=== PATIENT | male | born 1990 | race Caucasian/White ===

== ENCOUNTER → 2018-06-27 | Outpatient (CLI) | payer BC | END | disposition home or self-care (01) | LOC: RAD 10:05 | PROVIDERS: ATTEND Internal Medicine | DX: M17.0 Bilateral primary osteoarthritis of knee (principal) | CPT/HCPCS: 73560 ==

== ENCOUNTER → 2018-06-28 | Outpatient (CLI) | payer BC ==
[2018-06-28 09:50] LABS: BASOPHILS % 0.3 % (0.0-2.0); EOSINOPHILS % 1.4 % (0.0-5.0); HEMATOCRIT. 45.5 % (42.0-52.0); HEMOGLOBIN. 15.7 g/dL (14.0-18.0); LYMPHOCYTES % 38.8 % (20.0-50.0); MEAN CORPUSCULAR HEMOGLOBIN 29.4 pg (28.0-32.0); MEAN CORPUSCULAR VOLUME 85.1 fL (80.0-94.0); MEAN PLATELET VOLUME 10.5 fl (7.4-10.4); MONOCYTES % 7.2 % (2.0-8.0); NEUTROPHILS % 52.3 % (40.0-76.0); PLATELET 151 x1000/uL (130-400); RED BLOOD CELL COUNT 5.34 mill/uL (4.7-6.1); RED CELL DISTRIBUTION WIDTH 13.4 % (11.6-14.6)
[2018-06-28 10:04] LABS: CHLORIDE 106 mEq/L (98-107)
[2018-06-28 10:13] LABS: HDL CHOLESTEROL 38 mg/dL (40-59); LDL CHOLESTEROL 142 mg/dL (5-100); T4 FREE 1.07 ng/dL (0.76-1.46)
== END | disposition home or self-care (01) ==
LOC: LAB 09:19
PROVIDERS: ATTEND Internal Medicine
DX: M17.10 Unilateral primary osteoarthritis, unspecified knee (principal)
CPT/HCPCS: 36415; 80048; 80061; 82248; 84439; 84443

== ENCOUNTER → 2020-08-13 | Outpatient (CLI) | payer OTHER ==
[2020-08-13 09:55] LABS: BASOPHILS % 0.6 % (0.0-2.0); EOSINOPHILS % 1.5 % (0.0-5.0); HEMATOCRIT. 44.2 % (42.0-52.0); HEMOGLOBIN. 15.1 g/dL (14.0-18.0); LYMPHOCYTES % 41.2 % (20.0-50.0); MEAN CORPUSCULAR HEMOGLOBIN 29.2 pg (28.0-32.0); MEAN CORPUSCULAR VOLUME 85.7 fL (80.0-94.0); MEAN PLATELET VOLUME 10.6 fl (7.4-10.4); MONOCYTES % 4.9 % (2.0-8.0); NEUTROPHILS % 51.8 % (40.0-76.0); PLATELET 166 x1000/uL (130-400); RED BLOOD CELL COUNT 5.16 mill/uL (4.7-6.1); RED CELL DISTRIBUTION WIDTH 13.3 % (11.6-14.6)
[2020-08-13 10:23] LABS: CHLORIDE 109 mEq/L (98-107)
[2020-08-13 10:32] LABS: HDL CHOLESTEROL 40 mg/dL (40-59)
[2020-08-13 10:33] LABS: LDL CHOLESTEROL 158 mg/dL (5-100)
[2020-08-13 10:37] LABS: TOTAL IRON BINDING CAPACITY 361 ug/dL (250-450)
[2020-08-13 11:39] LABS: VITAMIN B12 SERUM 828 pg/mL (211-911)
[2020-08-13 13:29] LABS: HEPATITIS B SURFACE AB 415.2 mIU/mL
[2020-08-13 13:40] LABS: HEPATITIS B SURFACE ANTIGEN NEGATIVE
[2020-08-13 14:09] LABS: HEPATITIS A AB IGM NEGATIVE (NEGATIVE)
[2020-08-14 07:11] LABS: HIV SCREEN 4G Non Reactive (Non Reactive); VITAMIN D 25-OH 23.6 ng/mL (30.0-100.0)
== END | disposition home or self-care (01) ==
LOC: LAB 08:34
PROVIDERS: ATTEND Internal Medicine Geriatric Medicine
DX: Z00.01 Encounter for general adult medical examination with abnormal findings (principal); N39.0 Urinary tract infection, site not specified; Z13.220 Encounter for screening for lipoid disorders; Z13.1 Encounter for screening for diabetes mellitus; Z13.0 Encounter for screening for diseases of the blood and blood-forming organs and certain disorders involving the immune mechanism; Z11.3 Encounter for screening for infections with a predominantly sexual mode of transmission
CPT/HCPCS: 80053; 80061; 82306; 82607; 83036; 83540; 83550; 84443; 85025; 86592; 86705; 86706; 86709; 86803; 87340; 87389